=== PATIENT | female | born 1965 | race Caucasian/White ===

== ENCOUNTER 2016-07-29 15:32 | Emergency (ER) | payer OTHER ==
[~2016-07-29] VITALS: Ht 162.6 cm; Wt 80.8 kg
[2016-07-29 19:06] VITALS: BP 115/66
== END 2016-07-29 19:07 | disposition home or self-care (01) ==
LOC: ED 15:32
DX: H10.211 Acute toxic conjunctivitis, right eye (principal); Z79.899 Other long term (current) drug therapy; Z87.890 Personal history of sex reassignment